=== PATIENT | male | born 1965 ===

== ENCOUNTER 2021-10-14 11:30 | Inpatient (IN) | payer OTHER ==
[~2021-10-14] VITALS: Ht 165.1 cm; Wt 70.3 kg
[2021-10-14] MEDS ORDERED: GABAPENTIN600 MG PO (14:12)
[2021-10-14] MEDS ORDERED: LAMOTRIGINE100 MG PO (14:12)
[2021-10-14] MEDS ORDERED: COZAAR100 MG PO (14:12)
[2021-10-14] MEDS ORDERED: AMLODIPINE BESYL5 MG PO (14:12)
[2021-10-19] MEDS ORDERED: ZOLPIDEM TARTRA10 MG (11:57)
[2021-10-19] MEDS ORDERED: PAROXETINE HCL20 MG (11:57)
[2021-10-19] MEDS ORDERED: CETIRIZINE HCL10 MG (11:58)
[2021-10-19] MEDS ORDERED: FENOFIBRATE134 MG (11:58)
[2021-10-19] MEDS ORDERED: SYSTANE ULTRA 010 ML (11:58)
[2021-10-19] MEDS ORDERED: CLONAZEPAM0.5 MG (11:58)
[2021-10-19] MEDS ORDERED: SIMVASTATIN40 MG (11:58)
[2021-10-20] MEDS ORDERED: MECLIZINE HCL12.5 MG (08:40)
[2021-10-20] MEDS ORDERED: CVS ENEMA DISP133 ML (08:40)
[2021-10-20] MEDS ORDERED: FAMOTIDINE20 MG (08:41)
[2021-10-20] MEDS ORDERED: OMEPRAZOLE40 MG (08:41)
[2021-10-20] MEDS ORDERED: MAGNESIUM500 MG (08:41)
[2021-10-20] MEDS ORDERED: ONE DAILY MUL400 MCG (08:41)
[2021-10-20] MEDS ORDERED: LORATADINE10 MG (08:42)
[2021-10-20] MEDS ORDERED: EYE ALLERGY REL15 M1 (08:42)
[2021-10-20] MEDS ORDERED: NEO-POLY-DEXAMET5 ML (08:42)
[2021-10-20] MEDS ORDERED: TAMSULOSIN HCL0.4 MG (08:42)
[2021-10-21] MEDS ORDERED: PRILOSEC OTC20 MG PO (11:43)
[2021-10-21] MEDS ORDERED: PERCOCET 5-3251 EACH PO (11:43)
== END 2021-10-21 14:46 | disposition home or self-care (01) | DRG 329 ==
LOC: O/R 10-19 07:15 → SURH 10-19 07:15
PROVIDERS: ADMIT Colon & Rectal Surgery; ATTEND Colon & Rectal Surgery
PROC: 0DTN4ZZ Resection of Sigmoid Colon, Percutaneous Endoscopic Approach (ICD-10-PCS; 2021-10-19)
PROC: 0DQF4ZZ Repair Right Large Intestine, Percutaneous Endoscopic Approach (ICD-10-PCS; 2021-10-19)
PROC: 3E0F7SF Introduction of Other Gas into Respiratory Tract, Via Natural or Artificial Opening (ICD-10-PCS; 2021-10-19)
PROC: 4A033R1 Measurement of Arterial Saturation, Peripheral, Percutaneous Approach (ICD-10-PCS; 2021-10-19)
PROC: 4A12X4Z Monitoring of Cardiac Electrical Activity, External Approach (ICD-10-PCS; 2021-10-19)
PROC: 0DTP4ZZ Resection of Rectum, Percutaneous Endoscopic Approach (ICD-10-PCS; principal; 2021-10-19 12:45)
DX: K57.20 Diverticulitis of large intestine with perforation and abscess without bleeding (principal); K65.8 Other peritonitis; K92.1 Melena; G40.802 Other epilepsy, not intractable, without status epilepticus; K91.71 Accidental puncture and laceration of a digestive system organ or structure during a digestive system procedure; I11.9 Hypertensive heart disease without heart failure; I35.0 Nonrheumatic aortic (valve) stenosis; G47.30 Sleep apnea, unspecified; Y92.234 Operating room of hospital as the place of occurrence of the external cause; Y65.8 Other specified misadventures during surgical and medical care

== ENCOUNTER 2021-10-24 21:35 | Inpatient (IN) | payer OTHER ==
[~2021-10-24] VITALS: Ht 172.7 cm; Wt 86.2 kg
[~2021-10-24 21:35] MED LIST: AMLODIPINE BESYL5 MG PO; CETIRIZINE HCL10 MG; CLONAZEPAM0.5 MG; COZAAR100 MG PO; CVS ENEMA DISP133 ML; EYE ALLERGY REL15 M1; FAMOTIDINE20 MG; FENOFIBRATE134 MG; GABAPENTIN600 MG PO; LAMOTRIGINE100 MG PO; LORATADINE10 MG; MAGNESIUM500 MG; MECLIZINE HCL12.5 MG; NEO-POLY-DEXAMET5 ML; OMEPRAZOLE40 MG; ONE DAILY MUL400 MCG; PAROXETINE HCL20 MG; PERCOCET 5-3251 EACH PO; PRILOSEC OTC20 MG PO; SIMVASTATIN40 MG; SYSTANE ULTRA 010 ML; TAMSULOSIN HCL0.4 MG; ZOLPIDEM TARTRA10 MG
[2021-10-30] MEDS ORDERED: VANCOMYCIN HCL125 MG PO (11:42)
[2021-10-30] MEDS ORDERED: METRONIDAZOLE500 MG PO (11:45)
== END 2021-10-30 13:20 | disposition home or self-care (01) | DRG 386 ==
LOC: ER 21:35 → SEC-K 10-25 16:08 → SURH 10-25 23:02
PROVIDERS: ADMIT Surgery; ATTEND Surgery
PROC: BW21YZZ Computerized Tomography (CT Scan) of Abdomen and Pelvis using Other Contrast (ICD-10-PCS; 2021-10-25)
PROC: 02HV33Z Insertion of Infusion Device into Superior Vena Cava, Percutaneous Approach (ICD-10-PCS; principal; 2021-10-26)
DX: K51.00 Ulcerative (chronic) pancolitis without complications (principal); K57.20 Diverticulitis of large intestine with perforation and abscess without bleeding; R10.9 Unspecified abdominal pain; I11.9 Hypertensive heart disease without heart failure; G47.39 Other sleep apnea; Z20.822 Contact with and (suspected) exposure to COVID-19

== ENCOUNTER 2022-12-03 11:39 | Inpatient (IN) | payer OTHER ==
[~2022-12-03] VITALS: Ht 152.4 cm; Wt 72.1 kg
[~2022-12-03 11:39] MED LIST changes: +METRONIDAZOLE500 MG PO; +VANCOMYCIN HCL125 MG PO
--- NOTE | 2022-12-03 11:49 | NUR ---
PTE ALERTA Y ORIENTADO EN OMAR BRITTNEY ESFERAS, LLEGA EN AMBULANCIA DESDE EL [facility]. PTE REFIERE COMENZO JEANA CON FIEBRE, NAUSEAS Y VOMITOS DESPUES DE QUE LE REALIZARAN KASEY COLONOSCOPIA. AL MOMENTO REFIERE SANGRADO RECTAL. SE PRESENTA A DR LEON Y SE UBICA EN AREA DE OBSERVACION.
--- NOTE | 2022-12-03 12:50 | NUR ---
PACIENTE EVALUADO POR DR LEON QUIEN [place] [facility], RN BARRETT LE ORIENTA A PACIENTE SOBRE EL MISMO Y VERBALIZA ENTENDER. LE COLECTA MUESTRAS DE LABORATORIO Y LE CANALIZA BAJO MEDIDAS ASEPTICAS, AREA DE VENOPUNCION PATENTE, ZACK DE EDEMA Y ERITEMA. SE LE ADMINISTRAN MED DAVID ORDEN
[2022-12-05] MEDS ORDERED: CLONAZEPAM0.5 MG (09:59)
[2022-12-05] MEDS ORDERED: SIMVASTATIN20 MG (09:59)
[2022-12-05] MEDS ORDERED: CETIRIZINE HCL10 MG (09:59)
[2022-12-05] MEDS ORDERED: SYSTANE ULTRA 010 ML (10:00)
[2022-12-05] MEDS ORDERED: LAMICTAL100 MG (10:00)
[2022-12-05] MEDS ORDERED: BENGAY ULTRA ST (10:00)
[2022-12-05] MEDS ORDERED: FISH OIL 1,0001 EAC5 (10:00)
[2022-12-05] MEDS ORDERED: PAROXETINE HCL20 MG (10:00)
[2022-12-08] MEDS ORDERED: CIPRO500 MG PO (12:11)
[2022-12-08] MEDS ORDERED: METRONIDAZOLE500 MG PO (12:11)
== END 2022-12-08 14:55 | disposition home or self-care (01) | DRG 379 ==
LOC: ER 11:39 → MEDI 18:59
PROVIDERS: ADMIT Internal Medicine; ATTEND Internal Medicine
PROC: BW21YZZ Computerized Tomography (CT Scan) of Abdomen and Pelvis using Other Contrast (ICD-10-PCS; 2022-12-04)
PROC: 02HV33Z Insertion of Infusion Device into Superior Vena Cava, Percutaneous Approach (ICD-10-PCS; principal; 2022-12-05)
DX: K62.5 Hemorrhage of anus and rectum (principal); K57.90 Diverticulosis of intestine, part unspecified, without perforation or abscess without bleeding; K52.9 Noninfective gastroenteritis and colitis, unspecified; D72.829 Elevated white blood cell count, unspecified; I11.9 Hypertensive heart disease without heart failure